=== PATIENT | male | born 1955 | race Caucasian/White ===

== ENCOUNTER 2017-08-15 10:47 | Day surgery (SDC) | payer OTHER ==
[~2017-08-15] VITALS: Ht 165.1 cm; Wt 69.0 kg
[2017-08-15] MEDS ORDERED: VISIPAQUE 270 MG/ML, 150ML BOTTLE ONE (12:00)
[2017-08-15 12:05] VITALS: BP 137/75
[2017-08-15] MEDS ORDERED: SODIUM CHLORIDE 0.9% 1,000 ML IV SCH (12:08)
[2017-08-15] MEDS ORDERED: DENIES (12:10)
[2017-08-15 12:33] LABS: BASOPHILS # (AUTO) 0.06 x10^3/uL (0-0.1); BASOPHILS % (AUTO) 1 % (0-1); EOSINOPHILS # (AUTO) 0.21 x10^3/uL (0-0.4); EOSINOPHILS % (AUTO) 3 % (1-7); LYMPHOCYTES # (AUTO) 1.53 x10^3/uL (1-3.4); LYMPHOCYTES % (AUTO) 23 % (22-44); MD NO; MEAN CORPUSCULAR HEMOGLOBIN 30.9 pg (27.5-34.5); MEAN CORPUSCULAR HGB CONC 34.3 g/dL (33.2-36.2); MEAN PLATELET VOLUME 7.2 fL (7.4-10.4); MONOCYTES # (AUTO) 0.44 x10^3/uL (0.2-0.8); MONOCYTES % (AUTO) 6 % (2-9); NEUTROPHILS # (AUTO) 4.53 x10^3/uL (1.8-6.8); NEUTROPHILS % (AUTO) 67 % (42-75); PLATELET COUNT 327 x10^3/uL (130-400); RED BLOOD COUNT 5.21 x10^6/uL (4.38-5.82); RED CELL DISTRIBUTION WIDTH 12.6 % (9.4-14.8)
[2017-08-15] MEDS ORDERED: LIDOCAINE 2%, 20ML ONE (12:45)
[2017-08-15 12:46] LABS: ALANINE AMINOTRANSFERASE 32 U/L (12-78); ALBUMIN 3.9 g/dL (3.4-5.0); ANION GAP 7 mmol/L (5-15); CHLORIDE 104 mmol/L (98-107); CREATININE 0.72 mg/dL (0.7-1.3)
[2017-08-15 12:48] LABS: ALKALINE PHOSPHATASE 107 U/L (45-117); BILIRUBIN,TOTAL 0.4 mg/dL (0.2-1.0); TOTAL PROTEIN 8.6 g/dL (6.4-8.2)
[2017-08-15] MEDS ORDERED: FENTANYL PF 100 MCG/2ML ONE (13:24)
[2017-08-15] MEDS ORDERED: PROTAMINE SULFATE 10 MG/ML, 25ML ONE (13:24)
[2017-08-15] MEDS ORDERED: FLUMAZENIL 0.1 MG/1 ML, 5ML ONE (13:24)
[2017-08-15] MEDS ORDERED: NALOXONE 1 MG/ML, 2ML ONE (13:24)
[2017-08-15] MEDS ORDERED: HEPARIN 1,000 UNITS/ML, 10ML ONE (13:24)
[2017-08-15] MEDS ORDERED: NITROGLYCERIN 5 MG/ML, 10ML ONE (13:24)
[2017-08-15] MEDS ORDERED: MIDAZOLAM 1 MG/ML, 2ML ONE (13:24)
[2017-08-15] MEDS ORDERED: ONDANSETRON 2MG/ML, 2ML ONE (14:10)
== END 2017-08-15 18:35 | disposition home or self-care (01) ==
LOC: OUT 10:47
PROVIDERS: ATTEND Surgery
DX: I70.213 Atherosclerosis of native arteries of extremities with intermittent claudication, bilateral legs (principal)
CPT/HCPCS: 36415; 37221; 75625; 75716; 80053; 85025; 99156; 99157; C1725; C1751; C1876; C1894; J1644; J2250; J2405; J2720; J3010; J3490; J7030; Q9966; J2310

== ENCOUNTER → 2018-02-21 | Outpatient (CLI) | payer OTHER ==
[~2018-02-21] MED LIST: DENIES; OMNIPAQUE 350 MG/ML, 150 ML BOTTLE ONE
== END | disposition home or self-care (01) ==
LOC: CFH 11:49
PROVIDERS: ATTEND Surgery
DX: I70.203 Unspecified atherosclerosis of native arteries of extremities, bilateral legs (principal); I77.9 Disorder of arteries and arterioles, unspecified
CPT/HCPCS: 75635; 82565; Q9967

== ENCOUNTER 2018-04-14 06:14 | Day surgery (SDC) | payer OTHER ==
[~2018-04-14] VITALS: Ht 165.1 cm; Wt 67.3 kg
[~2018-04-14 06:14] MED LIST changes: -OMNIPAQUE 350 MG/ML, 150 ML BOTTLE ONE
[2018-04-14 07:13] VITALS: BP 158/96
[2018-04-14] MEDS ORDERED: ATOR10TA9 PO (07:13)
[2018-04-14] MEDS ORDERED: HYDR12.53 PO (07:13)
[2018-04-14] MEDS ORDERED: VERA240C2 PO (07:13)
[2018-04-14] MEDS ORDERED: METF10007 PO (07:13)
[2018-04-14] MEDS ORDERED: GLIP5TAB10 PO (07:13)
[2018-04-14] MEDS ORDERED: CLON0.1T PO (07:13)
[2018-04-14] MEDS ORDERED: LISI40TA PO (07:13)
[2018-04-14] MEDS ORDERED: SODIUM CHLORIDE 0.9% 1,000 ML IV SCH (07:30)
[2018-04-14 07:37] LABS: BASOPHILS # (AUTO) 0.04 x10^3/uL (0-0.1); BASOPHILS % (AUTO) 1 % (0-1); EOSINOPHILS # (AUTO) 0.78 x10^3/uL (0-0.4); EOSINOPHILS % (AUTO) 11 % (1-7); LYMPHOCYTES # (AUTO) 1.68 x10^3/uL (1-3.4); LYMPHOCYTES % (AUTO) 23 % (22-44); MD NO; MEAN CORPUSCULAR HEMOGLOBIN 30.7 pg (27.5-34.5); MEAN CORPUSCULAR HGB CONC 33.8 g/dL (33.2-36.2); MEAN CORPUSCULAR VOLUME 90.8 fL (81-97); MEAN PLATELET VOLUME 6.8 fL (7.4-10.4); MONOCYTES # (AUTO) 0.68 x10^3/uL (0.2-0.8); MONOCYTES % (AUTO) 9 % (2-9); NEUTROPHILS # (AUTO) 4.11 x10^3/uL (1.8-6.8); NEUTROPHILS % (AUTO) 56 % (42-75); PLATELET COUNT 305 x10^3/uL (130-400); RED BLOOD COUNT 5.07 x10^6/uL (4.38-5.82); RED CELL DISTRIBUTION WIDTH 13.5 % (9.4-14.8)
[2018-04-14 07:50] LABS: ALANINE AMINOTRANSFERASE 26 U/L (12-78); ANION GAP 9 mmol/L (5-15); CALCIUM 8.8 mg/dL (8.5-10.1); CHLORIDE 109 mmol/L (98-107); CREATININE 0.97 mg/dL (0.7-1.3)
[2018-04-14 07:52] LABS: ALKALINE PHOSPHATASE 121 U/L (45-117); BILIRUBIN,TOTAL 0.4 mg/dL (0.2-1.0); TOTAL PROTEIN 8.1 g/dL (6.4-8.2)
[2018-04-14] MEDS ORDERED: LIDOCAINE-MPF 2%, 2ML ONE (08:17)
[2018-04-14] MEDS ORDERED: FENTANYL PF 100 MCG/2ML ONE (08:31)
[2018-04-14] MEDS ORDERED: MIDAZOLAM 1 MG/ML, 5ML ONE ×2 (08:31)
[2018-04-14] MEDS ORDERED: FLUMAZENIL 0.1 MG/1 ML, 5ML ONE (08:31)
[2018-04-14] MEDS ORDERED: HEPARIN 1,000 UNITS/ML, 10ML ONE (08:32)
[2018-04-14] MEDS ORDERED: NALOXONE 1 MG/ML, 2ML ONE (08:32)
[2018-04-14] MEDS ORDERED: PROTAMINE SULFATE 10 MG/ML, 25ML ONE (08:32)
[2018-04-14] MEDS ORDERED: ONDANSETRON 2MG/ML, 2ML ONE (09:06)
[2018-04-14] MEDS ORDERED: VISIPAQUE 270 MG/ML, 150ML BOTTLE ONE (11:07)
== END 2018-04-14 13:15 | disposition home or self-care (01) ==
LOC: OUT 06:14
PROVIDERS: ATTEND Surgery
DX: I70.213 Atherosclerosis of native arteries of extremities with intermittent claudication, bilateral legs (principal); I25.10 Atherosclerotic heart disease of native coronary artery without angina pectoris; E78.00 Pure hypercholesterolemia, unspecified; Z86.73 Personal history of transient ischemic attack (TIA), and cerebral infarction without residual deficits; Z98.890 Other specified postprocedural states; Z87.891 Personal history of nicotine dependence; Z72.89 Other problems related to lifestyle
CPT/HCPCS: 36415; 37225; 75625; 75710; 76937; 80053; 85025; 99156; 99157; C1714; C1725; C1751; C1760; C1769; C1884; C1894; C2623; J1644; J2250; J2405; J3010; J3490; J7030; Q9966; 75630; J2720; J2310

== ENCOUNTER → 2018-05-22 | Outpatient (CLI) | payer OTHER ==
[~2018-05-22] MED LIST changes: +ATOR10TA9 PO; +CLON0.1T PO; +GLIP5TAB10 PO; +HYDR12.53 PO; +LISI40TA PO; +METF10007 PO; +VERA240C2 PO
== END | disposition home or self-care (01) ==
LOC: CVU 13:16
PROVIDERS: ATTEND Surgery
DX: Z09 Encounter for follow-up examination after completed treatment for conditions other than malignant neoplasm (principal); I70.213 Atherosclerosis of native arteries of extremities with intermittent claudication, bilateral legs; I25.10 Atherosclerotic heart disease of native coronary artery without angina pectoris; I63.9 Cerebral infarction, unspecified; F17.200 Nicotine dependence, unspecified, uncomplicated; I10 Essential (primary) hypertension; E11.9 Type 2 diabetes mellitus without complications; E78.5 Hyperlipidemia, unspecified; I25.2 Old myocardial infarction
CPT/HCPCS: 93922; 93925

== ENCOUNTER 2018-06-09 07:12 | Day surgery (SDC) | payer OTHER ==
[~2018-06-09] VITALS: Ht 165.1 cm; Wt 68.0 kg
[2018-06-09] MEDS ORDERED: SODIUM CHLORIDE 0.9% 1,000 ML IV SCH (08:05)
[2018-06-09] MEDS ORDERED: FENTANYL PF 100 MCG/2ML ONE ×2 (08:37→10:27)
[2018-06-09] MEDS ORDERED: HEPARIN 1,000 UNITS/ML, 10ML ONE (08:38)
[2018-06-09] MEDS ORDERED: NALOXONE 1 MG/ML, 2ML ONE (08:38)
[2018-06-09] MEDS ORDERED: PROTAMINE SULFATE 10 MG/ML, 25ML ONE (08:38)
[2018-06-09] MEDS ORDERED: NITROGLYCERIN 5 MG/ML, 10ML ONE (08:38)
[2018-06-09] MEDS ORDERED: MIDAZOLAM 1 MG/ML, 5ML ONE (08:38)
[2018-06-09] MEDS ORDERED: FLUMAZENIL 0.1 MG/1 ML, 5ML ONE (08:38)
[2018-06-09 08:42] VITALS: BP 148/71
[2018-06-09 08:46] LABS: BASOPHILS # (AUTO) 0.02 x10^3/uL (0-0.1); BASOPHILS % (AUTO) 0 % (0-1); EOSINOPHILS % (AUTO) 7 % (1-7); LYMPHOCYTES # (AUTO) 1.56 x10^3/uL (1-3.4); LYMPHOCYTES % (AUTO) 27 % (22-44); MD NO; MEAN CORPUSCULAR HEMOGLOBIN 30.8 pg (27.5-34.5); MEAN CORPUSCULAR HGB CONC 34.1 g/dL (33.2-36.2); MEAN CORPUSCULAR VOLUME 90.1 fL (81-97); MONOCYTES # (AUTO) 0.61 x10^3/uL (0.2-0.8); MONOCYTES % (AUTO) 11 % (2-9); NEUTROPHILS # (AUTO) 3.15 x10^3/uL (1.8-6.8); NEUTROPHILS % (AUTO) 55 % (42-75); PLATELET COUNT 327 x10^3/uL (130-400); RED BLOOD COUNT 4.76 x10^6/uL (4.38-5.82); RED CELL DISTRIBUTION WIDTH 12.8 % (9.4-14.8)
[2018-06-09 08:48] LABS: ANION GAP 8 mmol/L (5-15); CALCIUM 8.2 mg/dL (8.5-10.1); CHLORIDE 108 mmol/L (98-107); CREATININE 0.78 mg/dL (0.7-1.3)
[2018-06-09] MEDS ORDERED: LIDOCAINE-MPF 1%, 5ML ONE ×2 (08:57)
[2018-06-09] MEDS ORDERED: DIPHENHYDRAMINE 50 MG/ML, 1ML ONE (09:34)
[2018-06-09] MEDS ORDERED: LABETALOL 5MG/ML, 20ML ONE (09:47)
[2018-06-09] MEDS ORDERED: VISIPAQUE 270 MG/ML, 50ML BOTTLE ONE ×2 (10:00→13:00)
[2018-06-09] MEDS ORDERED: hydrALAzine 20 MG/ML, 1ML ONE (12:06)
[2018-06-09] MEDS ORDERED: hydrALAzine 20 MG/ML, 1ML IV PRN (12:30)
== END 2018-06-09 14:10 | disposition home or self-care (01) ==
LOC: OUT 07:12
PROVIDERS: ATTEND Surgery
DX: I70.213 Atherosclerosis of native arteries of extremities with intermittent claudication, bilateral legs (principal); I25.10 Atherosclerotic heart disease of native coronary artery without angina pectoris; I10 Essential (primary) hypertension; E78.00 Pure hypercholesterolemia, unspecified; Z87.39 Personal history of other diseases of the musculoskeletal system and connective tissue; Z86.73 Personal history of transient ischemic attack (TIA), and cerebral infarction without residual deficits; Z98.890 Other specified postprocedural states; Z79.899 Other long term (current) drug therapy; Z72.89 Other problems related to lifestyle; Z87.891 Personal history of nicotine dependence
CPT/HCPCS: 36415; 37227; 76937; 80048; 85025; 99156; 99157; C1714; C1725; C1751; C1769; C1876; C1884; C1894; J0360; J1200; J1644; J2720; J3010; J7030; Q9966; 75630; 75710; J2250; J2310

== ENCOUNTER 2018-07-08 07:23 | Inpatient (IN) | payer OTHER ==
[~2018-07-08] VITALS: Ht 172.7 cm; Wt 73.3 kg
[~2018-07-08 07:23] MED LIST changes: +BACITRACIN 50,000 UNIT ONE; -CLON0.1T PO; +CLON0.1T22 PO; +HEPARIN 1,000 UNITS/ML, 10ML ONE; +HYDR12.517 PO; -HYDR12.53 PO; +LIDOCAINE/PF 1%, 30ML ONE; +PROTAMINE SULFATE 10 MG/ML, 5ML ONE; +THROMBIN 5,000 UNIT VIAL TP ONE
[2018-07-08] MEDS ORDERED: LACTATED RINGERS 1,000 ML IV SCH (08:21)
[2018-07-08] MEDS ORDERED: LIDOCAINE-MPF 1%, 2ML INFIL ONE (08:30)
[2018-07-08 08:32] VITALS: BP 160/89
[2018-07-08] MEDS ORDERED: MIDAZOLAM 1 MG/ML, 2ML ONE (09:45)
[2018-07-08] MEDS ORDERED: FENTANYL PF 250 MCG/5ML ONE (09:45)
[2018-07-08] MEDS ORDERED: CEFAZOLIN 1,000 MG ONE (09:46)
[2018-07-08] MEDS ORDERED: PROPOFOL 10 MG/ML, 20ML ONE (09:46)
[2018-07-08] MEDS ORDERED: WATER-INJECTION,STERILE 10 ML IV ONE (09:46)
[2018-07-08] MEDS ORDERED: LIDOCAINE-MPF 2% ,5ML ONE (09:46)
[2018-07-08] MEDS ORDERED: LIDOCAINE/PF 1%, 30ML ONE (09:58)
[2018-07-08] MEDS ORDERED: HEPARIN 1,000 UNITS/ML, 10ML ONE ×2 (10:07→12:21)
[2018-07-08] MEDS ORDERED: DEXAMETHASONE 4 MG/ML, 1ML ONE ×2 (10:37)
[2018-07-08] MEDS ORDERED: ONDANSETRON 2MG/ML, 2ML ONE ×2 (10:37)
[2018-07-08] MEDS ORDERED: ROCURONIUM 10 MG/ML,10ML ONE (10:38)
[2018-07-08] MEDS ORDERED: PHENYLEPHRINE 10 MG/ML ONE (10:38)
[2018-07-08] MEDS ORDERED: VISIPAQUE 270 MG/ML, 50ML BOTTLE INJ ONE (11:16)
[2018-07-08] MEDS ORDERED: FENTANYL PF 100 MCG/2ML ONE ×3 (13:19→14:36)
[2018-07-08] MEDS ORDERED: OXYcodone 5 MG/5 ML ORAL.SOL UDC ONE (14:36)
[2018-07-08] MEDS: FENTANYL PF 100 MCG/2ML IV PRN ×2 (14:50→14:59)
[2018-07-08] MEDS ORDERED: LABETALOL 5MG/ML, 20ML IV PRN (15:00)
[2018-07-08] MEDS ORDERED: PROMETHAZINE 25 MG/ML, 1ML IV PRN (15:00)
[2018-07-08] MEDS ORDERED: OXYcodone 5 MG/5 ML ORAL.SOL UDC PO PRN (15:00)
[2018-07-08] MEDS ORDERED: ACETAMINOPHEN 325 MG TABLET PO PRN ×2 (15:00→16:00)
[2018-07-08] MEDS ORDERED: MEPERIDINE/PF 25MG/0.5ML IVPush PRN (15:00)
[2018-07-08] MEDS ORDERED: HYDROmorphone 2 MG/ML, 1ML IVPush PRN (15:00)
[2018-07-08] MEDS ORDERED: HALOPERIDOL 5 MG/ML IV PRN (15:00)
[2018-07-08] MEDS ORDERED: LORazepam 2 MG/ML, 1ML IVPush PRN (15:00)
[2018-07-08] MEDS ORDERED: hydrALAzine 20 MG/ML, 1ML IV PRN (15:00)
[2018-07-08] MEDS ORDERED: ONDANSETRON 2MG/ML, 2ML IV PRN (16:00)
[2018-07-08] MEDS ORDERED: morphine SULFATE 10 MG/ML, 1ML IV PRN (16:00)
[2018-07-08 16:09] VITALS: BP 130/77
[2018-07-08] MEDS: LACTATED RINGERS 1,000 ML IV SCH (16:20)
[2018-07-08] MEDS: HYDROcodone/APAP 5/325 TABLET PO PRN (19:58)
[2018-07-08 20:00] VITALS: BP 149/80
[2018-07-08] MEDS: SODIUM CHLORIDE FLUSH 10ML SYR IVF SCH (20:59)
[2018-07-08] MEDS: ATORVASTATIN 10 MG TABLET PO SCH (21:21)
[2018-07-08] MEDS: INSULIN REGULAR, HUMAN 100 UNIT/ML 3ML VIAL LOW DOSE SS SQ-INSULIN SCH (21:46)
[2018-07-09] VITALS: BP 155/71
[2018-07-09] MEDS: LACTATED RINGERS 1,000 ML IV SCH ×2 (02:20→16:08)
[2018-07-09 03:34] VITALS: BP 132/67
[2018-07-09 05:05] LABS: BASOPHILS # (AUTO) 0.03 x10^3/uL (0-0.1); BASOPHILS % (AUTO) 0 % (0-1); EOSINOPHILS % (AUTO) 0 % (1-7); LYMPHOCYTES # (AUTO) 1.19 x10^3/uL (1-3.4); LYMPHOCYTES % (AUTO) 15 % (22-44); MD NO; MEAN CORPUSCULAR HGB CONC 34.4 g/dL (33.2-36.2); MEAN CORPUSCULAR VOLUME 89.9 fL (81-97); MEAN PLATELET VOLUME 7.7 fL (7.4-10.4); MONOCYTES # (AUTO) 1.19 x10^3/uL (0.2-0.8); MONOCYTES % (AUTO) 15 % (2-9); NEUTROPHILS # (AUTO) 5.46 x10^3/uL (1.8-6.8); NEUTROPHILS % (AUTO) 69 % (42-75); PLATELET COUNT 272 x10^3/uL (130-400); RED BLOOD COUNT 3.38 x10^6/uL (4.38-5.82); RED CELL DISTRIBUTION WIDTH 12.7 % (9.4-14.8)
[2018-07-09 05:11] LABS: ALBUMIN 2.9 g/dL (3.4-5.0); ANION GAP 8 mmol/L (5-15); CALCIUM 8.1 mg/dL (8.5-10.1); CHLORIDE 107 mmol/L (98-107); CREATININE 0.77 mg/dL (0.7-1.3)
[2018-07-09] MEDS: HYDROcodone/APAP 5/325 TABLET PO PRN ×3 (05:26→19:17)
[2018-07-09] MEDS: INSULIN REGULAR, HUMAN 100 UNIT/ML 3ML VIAL LOW DOSE SS SQ-INSULIN SCH ×4 (06:13→20:43)
[2018-07-09 07:01] VITALS: BP 120/66
[2018-07-09] MEDS: VERAPAMIL ER 240MG TABLET.ER PO SCH (08:08)
[2018-07-09] MEDS: LISINOPRIL 20 MG TABLET PO SCH (08:08)
[2018-07-09] MEDS: SODIUM CHLORIDE FLUSH 10ML SYR IVF SCH ×2 (08:09→20:41)
[2018-07-09] MEDS: HYDROCHLOROTHIAZIDE 12.5 MG CAPSULE PO SCH (08:09)
[2018-07-09 13:36] VITALS: BP 105/55
[2018-07-09] MEDS: ENOXAPARIN 40 MG/0.4 ML SQ SCH (13:41)
[2018-07-09 20:00] VITALS: BP 92/49
[2018-07-09] MEDS: ATORVASTATIN 10 MG TABLET PO SCH (20:40)
[2018-07-10] MEDS: HYDROcodone/APAP 5/325 TABLET PO PRN ×5 (00:11→21:21)
[2018-07-10 02:21] VITALS: BP 107/57
[2018-07-10] MEDS: INSULIN REGULAR, HUMAN 100 UNIT/ML 3ML VIAL LOW DOSE SS SQ-INSULIN SCH ×4 (06:11→21:00)
[2018-07-10 06:52] VITALS: BP 138/73
[2018-07-10] MEDS: LACTATED RINGERS 1,000 ML IV SCH ×2 (07:15→21:20)
[2018-07-10 08:01] VITALS: BP 138/73
[2018-07-10] MEDS: LISINOPRIL 20 MG TABLET PO SCH (08:02)
[2018-07-10] MEDS: VERAPAMIL ER 240MG TABLET.ER PO SCH (08:02)
[2018-07-10] MEDS: HYDROCHLOROTHIAZIDE 12.5 MG CAPSULE PO SCH (08:02)
[2018-07-10] MEDS: SODIUM CHLORIDE FLUSH 10ML SYR IVF SCH ×2 (08:03→21:00)
[2018-07-10] MEDS: ENOXAPARIN 40 MG/0.4 ML SQ SCH (13:23)
[2018-07-10 14:01] VITALS: BP 94/57
[2018-07-10 20:34] VITALS: BP 110/65
[2018-07-10] MEDS: ATORVASTATIN 10 MG TABLET PO SCH (21:21)
[2018-07-11 01:02] VITALS: BP 106/62
[2018-07-11] MEDS: HYDROcodone/APAP 5/325 TABLET PO PRN ×3 (04:33→20:44)
[2018-07-11] MEDS: INSULIN REGULAR, HUMAN 100 UNIT/ML 3ML VIAL LOW DOSE SS SQ-INSULIN SCH ×4 (07:00→21:00)
[2018-07-11 07:14] VITALS: BP 122/67
[2018-07-11] MEDS: VERAPAMIL ER 240MG TABLET.ER PO SCH ×2 (08:10→12:00)
[2018-07-11] MEDS: LACTATED RINGERS 1,000 ML IV SCH (08:11)
[2018-07-11] MEDS: LISINOPRIL 20 MG TABLET PO SCH (08:11)
[2018-07-11] MEDS: HYDROCHLOROTHIAZIDE 12.5 MG CAPSULE PO SCH ×2 (08:11→12:00)
[2018-07-11] MEDS: SODIUM CHLORIDE FLUSH 10ML SYR IVF SCH ×3 (08:11→21:00)
[2018-07-11] MEDS: metFORMIN 500 MG TABLET PO SCH ×2 (12:18→20:44)
[2018-07-11] MEDS ORDERED: FUROSEMIDE 20 MG/2 ML IV ONE (13:30)
[2018-07-11] MEDS: ENOXAPARIN 40 MG/0.4 ML SQ SCH (13:33)
[2018-07-11 13:51] LABS: BASOPHILS # (AUTO) 0.03 x10^3/uL (0-0.1); BASOPHILS % (AUTO) 0 % (0-1); EOSINOPHILS # (AUTO) 0.32 x10^3/uL (0-0.4); EOSINOPHILS % (AUTO) 3 % (1-7); LYMPHOCYTES # (AUTO) 0.96 x10^3/uL (1-3.4); LYMPHOCYTES % (AUTO) 9 % (22-44); MD NO; MEAN CORPUSCULAR HEMOGLOBIN 30.6 pg (27.5-34.5); MEAN CORPUSCULAR HGB CONC 34.1 g/dL (33.2-36.2); MEAN CORPUSCULAR VOLUME 89.7 fL (81-97); MEAN PLATELET VOLUME 7.5 fL (7.4-10.4); MONOCYTES % (AUTO) 9 % (2-9); NEUTROPHILS # (AUTO) 8.23 x10^3/uL (1.8-6.8); NEUTROPHILS % (AUTO) 79 % (42-75); PLATELET COUNT 253 x10^3/uL (130-400); RED BLOOD COUNT 2.94 x10^6/uL (4.38-5.82); RED CELL DISTRIBUTION WIDTH 12.7 % (9.4-14.8)
[2018-07-11 13:57] LABS: ANION GAP 6 mmol/L (5-15); CALCIUM 8.3 mg/dL (8.5-10.1); CHLORIDE 104 mmol/L (98-107); CREATININE 1.03 mg/dL (0.7-1.3)
[2018-07-11 14:11] VITALS: BP 95/53
[2018-07-11] MEDS ORDERED: DEXTROSE 50%, 50ML SYRINGE IVPush PRN (15:30)
[2018-07-11] MEDS ORDERED: GLUCAGON 1 MG IM PRN (15:30)
[2018-07-11] MEDS ORDERED: DEXTROSE 4 GM TAB.CHEW PO PRN (15:30)
[2018-07-11 18:41] VITALS: BP 122/70
[2018-07-11] MEDS: ATORVASTATIN 10 MG TABLET PO SCH (20:44)
[2018-07-12 00:29] VITALS: BP 94/54
[2018-07-12] MEDS: INSULIN REGULAR, HUMAN 100 UNIT/ML 3ML VIAL LOW DOSE SS SQ-INSULIN SCH ×4 (07:00→20:15)
[2018-07-12 07:13] VITALS: BP 121/67
[2018-07-12] MEDS: HYDROCHLOROTHIAZIDE 12.5 MG CAPSULE PO SCH (07:56)
[2018-07-12] MEDS: metFORMIN 500 MG TABLET PO SCH ×2 (07:56→20:18)
[2018-07-12] MEDS: LISINOPRIL 20 MG TABLET PO SCH (07:56)
[2018-07-12] MEDS: SODIUM CHLORIDE FLUSH 10ML SYR IVF SCH ×4 (07:56→20:18)
[2018-07-12] MEDS: VERAPAMIL ER 240MG TABLET.ER PO SCH (07:56)
[2018-07-12] MEDS: HYDROcodone/APAP 5/325 TABLET PO PRN ×2 (11:01→16:42)
[2018-07-12 13:27] VITALS: BP 107/75
[2018-07-12] MEDS: ENOXAPARIN 40 MG/0.4 ML SQ SCH (15:13)
[2018-07-12 18:42] VITALS: BP 106/57
[2018-07-12] MEDS: ATORVASTATIN 10 MG TABLET PO SCH (20:18)
[2018-07-13 00:41] VITALS: BP 143/68
[2018-07-13] MEDS: HYDROcodone/APAP 5/325 TABLET PO PRN ×4 (00:42→21:19)
[2018-07-13 05:57] LABS: ALBUMIN 2.8 g/dL (3.4-5.0); ANION GAP 7 mmol/L (5-15); CALCIUM 8.4 mg/dL (8.5-10.1); CHLORIDE 108 mmol/L (98-107)
[2018-07-13 06:03] LABS: ALANINE AMINOTRANSFERASE 45 U/L (12-78); ALKALINE PHOSPHATASE 121 U/L (45-117); BILIRUBIN,TOTAL 0.6 mg/dL (0.2-1.0); CHOLESTEROL, TOTAL 151 mg/dL (140-239); CREATININE 0.87 mg/dL (0.7-1.3); HDL CHOL % 34 % (26-37); HDL CHOLESTEROL (DIRECT) 51 mg/dL (40-60); LDL CHOLESTEROL,CALCULATED 81 mg/dL (54-169); LDL/HDL RATIO 1.6 (0.5-3.0); TOTAL PROTEIN 6.7 g/dL (6.4-8.2); TRIGLYCERIDES 97 mg/dL (50-200); VLDL CHOLESTEROL 19 mg/dL (0-25)
[2018-07-13] MEDS: INSULIN REGULAR, HUMAN 100 UNIT/ML 3ML VIAL LOW DOSE SS SQ-INSULIN SCH ×4 (07:00→21:00)
[2018-07-13 07:30] VITALS: BP 112/62
[2018-07-13] MEDS: SODIUM CHLORIDE FLUSH 10ML SYR IVF SCH ×4 (09:00→21:19)
[2018-07-13] MEDS: LISINOPRIL 20 MG TABLET PO SCH (09:02)
[2018-07-13] MEDS: metFORMIN 500 MG TABLET PO SCH ×2 (09:02→21:19)
[2018-07-13] MEDS: HYDROCHLOROTHIAZIDE 12.5 MG CAPSULE PO SCH (09:02)
[2018-07-13] MEDS: VERAPAMIL ER 240MG TABLET.ER PO SCH (09:03)
[2018-07-13] MEDS: ENOXAPARIN 40 MG/0.4 ML SQ SCH (15:00)
[2018-07-13 15:47] VITALS: BP 95/57
[2018-07-13 20:10] VITALS: BP 127/55
[2018-07-13] MEDS: ATORVASTATIN 10 MG TABLET PO SCH (21:19)
[2018-07-14 02:15] VITALS: BP 105/55
[2018-07-14] MEDS: INSULIN REGULAR, HUMAN 100 UNIT/ML 3ML VIAL LOW DOSE SS SQ-INSULIN SCH (07:00)
[2018-07-14 07:43] VITALS: BP 157/75
[2018-07-14] MEDS: SODIUM CHLORIDE FLUSH 10ML SYR IVF SCH ×4 (09:00→20:14)
[2018-07-14] MEDS: HYDROcodone/APAP 5/325 TABLET PO PRN ×3 (10:48→21:32)
[2018-07-14] MEDS: VERAPAMIL ER 240MG TABLET.ER PO SCH (10:49)
[2018-07-14] MEDS: HYDROCHLOROTHIAZIDE 12.5 MG CAPSULE PO SCH (10:49)
[2018-07-14] MEDS: LISINOPRIL 20 MG TABLET PO SCH (10:49)
[2018-07-14] MEDS: metFORMIN 500 MG TABLET PO SCH ×2 (10:49→20:14)
[2018-07-14 13:26] VITALS: BP 106/56
[2018-07-14] MEDS: ENOXAPARIN 40 MG/0.4 ML SQ SCH (15:41)
[2018-07-14 19:40] VITALS: BP 112/61
[2018-07-14] MEDS: ATORVASTATIN 10 MG TABLET PO SCH (20:14)
[2018-07-15 03:28] VITALS: BP 105/54
[2018-07-15 07:32] VITALS: BP 115/58
[2018-07-15] MEDS: SODIUM CHLORIDE FLUSH 10ML SYR IVF SCH ×2 (09:00)
[2018-07-15] MEDS: VERAPAMIL ER 240MG TABLET.ER PO SCH (09:47)
[2018-07-15] MEDS: HYDROCHLOROTHIAZIDE 12.5 MG CAPSULE PO SCH (09:47)
[2018-07-15] MEDS: metFORMIN 500 MG TABLET PO SCH (09:47)
[2018-07-15] MEDS: LISINOPRIL 20 MG TABLET PO SCH (09:47)
[2018-07-15] MEDS: HYDROcodone/APAP 5/325 TABLET PO PRN ×2 (09:47→15:24)
[2018-07-15] MEDS: ENOXAPARIN 40 MG/0.4 ML SQ SCH (14:00)
[2018-07-15 15:35] VITALS: BP 129/69
[2018-07-15] MEDS ORDERED: HYDR-3240 PO (15:44)
== END 2018-07-15 16:30 | disposition home health service (06) | DRG 252 ==
LOC: ORIP 07:23 → 4NOR 15:42 → DCLOUNGE 07-15 16:00
PROVIDERS: ADMIT Surgery; ATTEND Internal Medicine
PROC: 06BP0ZZ Excision of Right Saphenous Vein, Open Approach (ICD-10-PCS; 2018-07-08)
PROC: 041K09L Bypass Right Femoral Artery to Popliteal Artery with Autologous Venous Tissue, Open Approach (ICD-10-PCS; principal; 2018-07-08 09:00)
DX: E11.51 Type 2 diabetes mellitus with diabetic peripheral angiopathy without gangrene (principal); E43 Unspecified severe protein-calorie malnutrition; I70.213 Atherosclerosis of native arteries of extremities with intermittent claudication, bilateral legs; E78.5 Hyperlipidemia, unspecified; I10 Essential (primary) hypertension; E78.00 Pure hypercholesterolemia, unspecified; I83.90 Asymptomatic varicose veins of unspecified lower extremity; E11.649 Type 2 diabetes mellitus with hypoglycemia without coma; I25.10 Atherosclerotic heart disease of native coronary artery without angina pectoris; Z86.73 Personal history of transient ischemic attack (TIA), and cerebral infarction without residual deficits; Z87.891 Personal history of nicotine dependence; Z79.84 Long term (current) use of oral hypoglycemic drugs; Z91.19 Patient's noncompliance with other medical treatment and regimen; Z79.899 Other long term (current) drug therapy; Z82.61 Family history of arthritis; Z83.3 Family history of diabetes mellitus; Z82.49 Family history of ischemic heart disease and other diseases of the circulatory system; Z68.24 Body mass index [BMI] 24.0-24.9, adult
CPT/HCPCS: 36415; 71045; 75710; 80048; 80053; 80061; 82040; 82962; 83880; 85025; 93005; G0378; J0690; J1100; J1644; J1650; J1815; J2250; J2405; J2704; J2720; J3010; J3490; Q9966; J1940; J2270; J2370; J7120

== ENCOUNTER 2018-10-01 10:10 | Outpatient (CLI) | payer MEDICARE ==
[~2018-10-01 10:10] MED LIST changes: -BACITRACIN 50,000 UNIT ONE; -HEPARIN 1,000 UNITS/ML, 10ML ONE; +HYDR-3240 PO; -LIDOCAINE/PF 1%, 30ML ONE; -PROTAMINE SULFATE 10 MG/ML, 5ML ONE; -THROMBIN 5,000 UNIT VIAL TP ONE
== END 2018-10-01 23:59 | disposition home or self-care (01) ==
LOC: CVU 10:10
PROVIDERS: ATTEND Surgery
DX: Z02.9 Encounter for administrative examinations, unspecified (principal)

== ENCOUNTER 2018-10-16 06:40 | Outpatient (CLI) | payer MEDICARE | END 2018-10-16 23:59 | disposition home or self-care (01) | LOC: CVU 06:40 | PROVIDERS: ATTEND Surgery | DX: I70.213 Atherosclerosis of native arteries of extremities with intermittent claudication, bilateral legs (principal); I10 Essential (primary) hypertension; E11.9 Type 2 diabetes mellitus without complications; I25.10 Atherosclerotic heart disease of native coronary artery without angina pectoris; E78.5 Hyperlipidemia, unspecified; Z72.0 Tobacco use | CPT/HCPCS: 93922; 93925 ==